=== PATIENT | male | born 1990 | race Caucasian/White ===

== ENCOUNTER 2022-12-19 19:54 | Emergency (ER) | payer SELFPAY ==
[~2022-12-19] VITALS: Ht 167.6 cm; Wt 81.0 kg
[~2022-12-19 19:54] MED LIST: BACITRACIN15 GM TP; BACTRIM DS TAB1 EACH PO; KEFLEX500 MG PO; NORCO 5-325 TA1 EACH PO
[2022-12-19] MEDS ORDERED: PENICILLIN V P500 MG PO (20:25)
== END 2022-12-19 20:45 | disposition home or self-care (01) ==
LOC: ED 19:54
DX: K01.1 Impacted teeth (principal); K02.9 Dental caries, unspecified; F17.200 Nicotine dependence, unspecified, uncomplicated
CPT/HCPCS: 99282; A9270

== ENCOUNTER 2024-08-03 16:34 | Emergency (ER) | payer SELFPAY ==
[~2024-08-03] VITALS: Ht 167.6 cm; Wt 78.8 kg
[~2024-08-03 16:34] MED LIST changes: +HYDROCODON-ACE1 EA10 PO; +PENICILLIN V P500 MG PO
[2024-08-03 16:59] LABS: BASOPHILS 1.8 % (0-2); EOSINOPHILS 3.5 % (0-6); HEMATOCRIT 48.3 % (35.0-50.0); HEMOGLOBIN 16.4 g/dL (12.0-18.0); MCH 31.4 (27-36); MCV 92.3 fl (81-99); MONOCYTES 9.9 % (0-12); NEUTROPHILS 58.8 % (39-80); PLATELET COUNT 373 K/uL (140-440); RBC 5.23 M/ul (4.3-5.7); RDW 12.9 (10.5-15.0)
[2024-08-03 17:21] LABS: ALBUMIN 4.2 g/dL (3.4-5.0); ALBUMIN/GLOBULIN RATIO 1.08 (1.1-2.4); ANION GAP 17.4 (7-21); BILIRUBIN, TOTAL 0.5 ng/dL (0.2-1.0); BUN/CREATININE RATIO 14.94 (6.0-28.6); CALCIUM 9.2 mg/dL (8.5-10.1); CREATININE, SERUM 0.87 mg/dL (0.70-1.30); MAGNESIUM 2.5 mg/dL (1.8-2.4); POTASSIUM 3.4 mmol/L (3.5-5.1); PROTEIN, TOTAL 8.1 g/dL (6.4-8.2)
[2024-08-03 18:02] VITALS: BP 116/66
--- NOTE | 2024-08-03 22:58 | EKG ---
[facility] [address] [facility] [place] [address] Signed Normal sinus rhythm Possible Left atrial enlargement Left axis deviation Pulmonary disease pattern Abnormal ECG No previous ECGs available Confirmed by Eryn Vasquez MD () on 08/03/2024 10:58:20 PM Electronically Signed By: ERYN VASQUEZ MD 08/03/24 2258 PATIENT NAME: INGA STOVALL Electrocardiogram DATE OF : [birth year] PHYSICIAN: ERYN VASQUEZ MD REPORT #: [id number] REPORT IS CONFIDENTIAL AND NOT TO BE RELEASED WITHOUT AUTHORIZATION
== END 2024-08-03 18:02 | disposition home or self-care (01) ==
LOC: ED 16:34
PROVIDERS: Emergency Medicine
DX: R07.9 Chest pain, unspecified (principal); F17.200 Nicotine dependence, unspecified, uncomplicated
CPT/HCPCS: 36415; 71045; 80053; 83735; 84484; 85025; 93005; 93010

== ENCOUNTER 2025-01-25 10:16 | Emergency (ER) | payer OTHER ==
[~2025-01-25] VITALS: Ht 167.6 cm; Wt 76.0 kg
[2025-01-25] MEDS ORDERED: LORazepam 1 MG TAB PO ONE (10:30)
[2025-01-25] MEDS ORDERED: CHLORDIAZEPOXID25 MG PO (12:11)
[2025-01-25] MEDS ORDERED: NALTREXONE HCL50 MG PO (12:11)
[2025-01-25 12:20] VITALS: BP 141/99
== END 2025-01-25 12:20 | disposition home or self-care (01) ==
LOC: ED 10:16
DX: F10.10 Alcohol abuse, uncomplicated (principal); F17.200 Nicotine dependence, unspecified, uncomplicated
CPT/HCPCS: 99283; A9270-GY